=== PATIENT | male | born 1995 ===

== ENCOUNTER 2020-12-31 23:05 | Emergency (ER) | payer OTHER ==
[~2020-12-31] VITALS: Ht 180.3 cm; Wt 107.3 kg
[2020-12-31 23:38] VITALS: BP 146/92
[2021-01-01] MEDS ORDERED: IBUPROFEN 600 MG TABLET PO ONE
[2021-01-01] MEDS ORDERED: MAALOX/HYOSCYAMINE/LIDOCAINE 45 ML BTL PO ONE
[2021-01-01] MEDS ORDERED: IBUPROFEN 600 MG TABLET ONE (00:10)
[2021-01-01] MEDS ORDERED: MAALOX/HYOSCYAMINE/LIDOCAINE 45 ML BTL ONE (00:10)
--- NOTE | 2021-01-01 00:17 | NUR ---
PT RESTING IN BED, NO COMPLAINTS AT THIS TIME, VSS
== END 2021-01-01 01:01 | disposition home or self-care (01) ==
LOC: ED 01-01 00:55
DX: K21.00 Gastro-esophageal reflux disease with esophagitis, without bleeding (principal)
CPT/HCPCS: 71046; 93005; 99283